=== PATIENT | female | born 1955 | race Caucasian/White ===

== ENCOUNTER → 2016-09-20 | Day surgery (SDC) | payer BC ==
[2016-09-13 08:35] VITALS: Ht 175.3 cm; Wt 136.4 kg
[~2016-09-20] VITALS: Ht 175.3 cm; Wt 136.4 kg
[~2016-09-20] MED LIST: ASPI-435 PO; EpHEDrine SULFATE 50MG/5ML SYR ONE; LIDOCAINE HCL 2% 2 ML VIAL (20MG/ML) ONE; LSX20 PO; MAGN1CAP2 PO; PROPOFOL IV EMULSION 10 MG/ML 20 ML VIAL IV ONE; SODIUM CHLORIDE 0.9% 500ML 500 ML IV ONE; SPR25 PO; TPRSR/25 PO
--- NOTE | 2016-09-20 08:41 | Endo History and Physical ---
History & Physical Date of Service: Sep 20, 2016. 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 Referring Physician: Past Medical History Atrial Fibrillation, Arthritis, Fractures, Other Past Surgical History Hx Cardiac Surgery: Yes (HEART CATH X2, NO STENTS) Hx Internal Defibrillator: No Hx Pacemaker: No Hx Abdominal Surgery: Yes (MAIN AND APPY, UTERINE ABLATION) Hx of Implantable Prosthesis: No Hx Post-Op Nausea and Vomiting: No Hx Cancer Surgery: No Hx Thoracic Surgery: No Hx Orthopedic: Yes (LT KNEE SURGERY X3) Hx Urinary Tract Surgery: No Family History Colon CA Social History Smoking Status: Never Smoker Hx Substance Use: No Hx Alcohol Use: No Allergies Coded Allergies: Adhesives (Verified Allergy, Unknown, REDNESS, RASH, 09/13/16) Penicillins (Verified Allergy, Unknown, HIVES, 09/13/16) Sulfa Drugs (Verified Allergy, Unknown, HIVES, 09/13/16) Current Medications Reported Home Medications Medications Dose Route/Sig Max Daily Dose Days Date Category Aspirin 81 (Aspirin) 81 Mg Tab 81 Mg PO HS 07/01/14 Reported Metoprolol Succinate ER (Metoprolol Succinate) 25 Mg Tabcr 25 Mg PO HS 07/01/14 Reported Magnesium (Magnesium Oxide (Mg Supplement) 400 Mg Cap 400 Mg PO HS 07/01/14 Reported Furosemide 20 Mg Tab 20 Mg PO Q2D 07/01/14 Reported Spironolactone 25 Mg Tab 25 Mg PO Q2D 07/01/14 Reported Vital Signs Weight (Kilograms): 136.36 Height (Feet): 5 Height (Inches): 9 Physical Exam General Appearance: WD/WN, no apparent distress Respiratory/Chest: Auscultation: breath sounds normal, no wheezing Cardiovascular: Heart Auscultation: RRR, no murmurs Abdomen: Inspection & Palpation: soft, no tenderness, guarding & rebound Assessment and Plan Cleared for colonoscopy.
--- NOTE | 2016-09-20 09:15 | Discharge Instructions ---
Endoscopy Patient Instructions Date / Procedure(s) Performed Sep 20, 2016. Colonoscopy Allergy Information Coded Allergies: Adhesives (Verified Allergy, Unknown, REDNESS, RASH, 09/13/16) Penicillins (Verified Allergy, Unknown, HIVES, 09/13/16) Sulfa Drugs (Verified Allergy, Unknown, HIVES, 09/13/16) Discharge Date / Findings Sep 20, 2016. Normal examination. Medication Instructions Stopped Medication(s): took baby ASA last night Restart Stopped Medication(s): Restart all medications today Provider Instructions Activity Restrictions - No exercising or heavy lifting for 24 hours. - Do not drink alcohol the day of the procedure. - Do not drive a car or operate machinery until the day after the procedure. - Do not make any important decisions or sign important papers in 24 hours after the procedure. Following Day: - Return to full activity which may include returning to work/school. Diet Start your diet with liquids and light foods (jello, soup, juice, toast). Then eat your usual diet if not nauseated. Treatment For Common After Affects For mild abdominal pain, bloating, or excessive gas: - Rest - Eat lightly - Lie on right side Follow-Up Information Follow-up with Dr. Helio Abad as scheduled Repeat colonoscopy in three years. Anesthesia Information What You Should Know You have had a procedure that required some medicine to reduce anxiety and discomfort. This treatment is called moderate sedation. After receiving the treatment, you may be sleepy, but you will be able to breathe on your own. The effects of the treatment may last for several hours. Follow these instructions along with Activity/Diet recommendations noted above: * Do NOT do anything where dizziness or clumsiness would be dangerous. * Rest quietly at home today, then you can be up and about tomorrow. * Have a responsible person stay with you the rest of today. * You may have had an I.V. today. If so, you may take the dressing off later today. Recommendations Call your doctor if: * Trouble breathing * Continuous vomiting for more than 24 hours * Temperature above 101 degrees * Severe abdominal pain or bloating * Pain not relieved by pain medicine ordered * There is increased drainage or redness from any incision * A large amount of rectal bleeding greater than 2-3 tablespoons. (If you had a polyp/s removed or have hemorrhoids, a small amount of blood - from the rectum is to be expected.) * You have any unanswered questions or concerns. IN THE EVENT OF A SERIOUS EMERGENCY, GO TO THE NEAREST EMERGENCY ROOM Your discharge instructions were prepared by provider Reilly Garibay. Patient Instructions Signature Page Amada Brown Patient (or Guardian) Signature/Date: I have read and understand the instructions given to me by my caregivers. Caregiver/RN/Doctor Signature/Date: The above-named patient and/or guardian has received patient instructions on this date. + Original Patient Signature Page (only) stays with chart. Please make copy for patient.
--- NOTE | 2016-09-20 09:19 | GI REPORT ---
Procedure Date: 09/20/2016 8:47 AM Procedure: Colonoscopy Indications: High risk colon cancer surveillance: Personal history of rectal MALT removed endoscopically Medicines: Monitored Anesthesia Care Complications: No immediate complications. Estimated blood loss: None. Estimated Blood Loss: Estimated blood loss: none. Procedure: Pre-Anesthesia Assessment: - Prior to the procedure, a History and Physical was performed, and patient medications, allergies and sensitivities were reviewed. The patient's tolerance of previous anesthesia was reviewed. - ASA Grade Assessment: III - A patient with severe systemic disease. After I obtained informed consent, the scope was passed under direct vision. Throughout the procedure, the patient's blood pressure, pulse, and oxygen saturations were monitored continuously. The Scope was introduced through the anus and advanced to the terminal ileum, with identification of the appendiceal orifice and IC valve. The colonoscopy was performed with ease. The patient tolerated the procedure well. The quality of the bowel preparation was excellent. The bowel preparation used was split dose MIralax. Findings: A tattoo was seen in the rectum. A post-polypectomy scar was found at the tattoo site. There was no evidence of residual polyp tissue. Impression: - A tattoo was seen in the rectum. A post-polypectomy scar was found at the tattoo site. There was no evidence of residual polyp tissue. - No specimens collected. - The colon was otherwise normal to the terminal ileum with retroflexed views of the colon and terminal ileum. Recommendation: - Repeat colonoscopy in 3 years for surveillance. Reilly Garibay M.D. Reilly Garibay MD 09/20/2016 9:19:14 AM This report has been signed electronically. Note Initiated On: 09/20/2016 8:47 AM I attest to the content of the Intraoperative Record and orders documented therein, exceptions below
[2016-09-20 09:48] VITALS: BP 118/78; PULSE 94; O2SAT 96
--- NOTE | 2016-09-20 13:49 | Anesthesiology Progress Note ---
Anesthesia Post Op Note Date & Time Sep 20, 2016 at 13:49 Vital Signs Pain Intensity: 0 Vital Signs Past 12 Hours Date Time Temp Pulse Resp B/P Pulse Ox O2 Delivery O2 Flow Rate FiO2 09/20/16 09:48 94 20 118/78 96 Room Air 09/20/16 09:32 75 20 112/84 98 Nasal Cannula 5 09/20/16 09:17 63 20 102/66 98 Nasal Cannula 5 09/20/16 08:40 36.7 72 20 127/69 96 Room Air Notes Mental Status: alert / awake / arousable, participated in evaluation Pt Amnestic to Procedure: Yes Nausea / Vomiting: adequately controlled Pain: adequately controlled Airway Patency, RR, SpO2: stable & adequate BP & HR: stable & adequate Hydration State: stable & adequate Anesthetic Complications: no major complications apparent
== END | disposition home or self-care (01) ==
LOC: C.GI 08:20
PROVIDERS: ATTEND Internal Medicine Gastroenterology
DX: Z12.11 Encounter for screening for malignant neoplasm of colon (principal); I48.91 Unspecified atrial fibrillation; M19.90 Unspecified osteoarthritis, unspecified site; Z79.82 Long term (current) use of aspirin; Z85.79 Personal history of other malignant neoplasms of lymphoid, hematopoietic and related tissues; Z88.0 Allergy status to penicillin; Z88.2 Allergy status to sulfonamides; Z80.0 Family history of malignant neoplasm of digestive organs

== ENCOUNTER 2018-12-05 06:02 | Inpatient (IN) ==
--- NOTE | 2018-12-03 09:06 | Anesthesiology Consultation ---
Date of Service December 03, 2018 Assessment & Plan (1) Encounter for pre-operative examination: Chart Review Chart Review: Acceptable Risk for Surgery and Patient NOT seen in Pre Admission Testing History Surgery Operation Date: 12/05/18 08:00 Proposed Procedures p Preventricular Contraction Ablation with Mapping, Anesthesia Needed - Lina Will, Height/Weight Height: 5 ft 9 in Weight: 141.067 kg Allergies Allergy/AdvReac Type Severity Reaction Status Date / Time adhesive Allergy Unknown REDNESS, Verified 11/28/18 14:57 RASH WITH BANDAIDS Penicillins Allergy Unknown HIVES Verified 11/28/18 14:57 Sulfa (Sulfonamide Allergy Unknown HIVES Verified 11/28/18 14:57 Antibiotics) Medications Home Medications Medication Instructions Recorded Confirmed Last Taken aspirin 81 mg PO QPM 04/05/18 11/28/18 06/06/18 01:00 furosemide 20 mg PO QAM 04/05/18 11/28/18 06/05/18 10:00 20 mg magnesium oxide 400 mg PO QPM 04/05/18 11/28/18 06/06/18 01:00 400 mg metoprolol succinate 25 mg PO BID 04/05/18 11/28/18 06/06/18 01:00 25 mg spironolactone 25 mg PO QAM 04/05/18 11/28/18 06/05/18 10:00 25 mg sacubitril-valsartan [Entresto] 1 tab PO BID 11/27/18 11/28/18 Unknown Past Medical History Medical History Anemia HX Atrial fibrillation Per cardio (EP) 05/15: "Paroxysmal, dx 2012, no further documented episodes. On Toprol, not on anticoagulation due to problems 5 yrs ago. On coumadin sounds like she got ischemic fingers from it, could not afford NOAC. [id number]- VASc score 3." Cardiomyopathy Nonischemic dilated CM. LV function 20-25% Chronic kidney disease STAGE 3 -- PCP MONITORING. GERD (gastroesophageal reflux disease) HX Hiatal hernia History of rectal cancer SURGERY TO REMOVE CANCER/NO CHEMO-06/2011 (PT DENIES, AND STATES THIS MAY BE WRONG) Hx of ulcer disease ICD (implantable cardioverter-defibrillator) in place BiV, implanted 06/06/2018. LAST CHECKED 10/2018. [employer]. Morbid obesity Osteoarthritis SOB (shortness of breath) on exertion Suspected sleep apnea Per cardio note 11/13/18 Past Family History Family History Mother Family history of diabetes mellitus Other No significant family history Past Surgical History Surgical History History of appendectomy History of cardiac cath NO STENTS-05/22/18 [facility] History of cholecystectomy History of colonoscopy X MULTIPLE History of endometrial ablation History of esophagogastroduodenoscopy (EGD) History of tonsillectomy Hx of knee surgery BILATERAL Social History Smoking Status: Never smoker Do You Dip or Chew Tobacco: No Hx Alcohol Use: No Hx Substance Use: No substance use type: does not use Testing Laboratory Results 10/11/18 WBC: 7.29 H/H: 14.6/45.0 PLATELETS: 174 SODIUM: 144 POTASSIUM: 4.5 CHLORIDE: 105 CO2: 27 BUN: 23 CREATININE: 1.0 GLUCOSE: 98 Electrocardiogram Date: 10/11/18 AV dual-paced rhythm at 71bpm. Chest X-Ray Date: 06/06/19 1. A 3-lead cardiac AICD has been placed as above. No pneumothorax is seen post procedure. 2. Cardiomegaly without radiographic evidence of congestive failure. 3. No airspace consolidation or pleural effusion is identified. Echocardiogram Date: 10/29/18 EF: 20-24% LV cavity size is moderately enlarged. Mild concentric LVH. Severe diffuse left HK with EF 20-24%. Grade I diastolic dysfunction. RV systolic function is normal as assessed by tricuspid annular plane systolic excursion. LA is normal in size. Normal IVC size and collapsability with sniff indicates a normal R atrial pressure of 3 mm Hg. No evidence of pulmonary HTN. No significant valve disease. Stress Test Date: 05/01/18 Resting EF: 20-25% Abnormal Lexiscan nuclear stress test suggesting anterior infarct with mild, focal, marco a-infarct ischemia involving the mid anterior segment. Abnormal gated SPECT imaging with an EF of 20-25% and severe global hypokinesis. Cardiac Catheterization Date: 05/22/18 Right dominant coronary anatomy Large-caliber normal coronaries, thin distal vessels Dilated left ventricle with severe diffuse left ventricular dysfunction EF 20- 25% Normal right heart pressures, no transaortic valve or mitral valve gradient LVEDP and pulmonary capillary wedge pressure 12mmHg Other Testing Pacer/ICD Remote Monitoring Transmission 11/12/18 Implanted 06/07/18 [employer] Pacing = 68.5% AP, 73.3% RV paced Mode = DDDR at 70bpm Mode switch episodes = 0 VT/VF episodes = 2 nonsustained episodes of which the longest was 1 second with ventricular rate of 200bpm. Impression = Normal defibrillator function. Stable pacing and sensing thresholds. Adequate battery reserve. "BiV ICD effective pacing is decreased."
[~2018-12-05 06:02] MED LIST changes: -ASPI-435 PO; +CEFAZOLIN 3000MG 65 ML IV SCH; -EpHEDrine SULFATE 50MG/5ML SYR ONE; -LIDOCAINE HCL 2% 2 ML VIAL (20MG/ML) ONE; +LR 15ML/HR IV SCH; -LSX20 PO; -MAGN1CAP2 PO; -PROPOFOL IV EMULSION 10 MG/ML 20 ML VIAL IV ONE; -SODIUM CHLORIDE 0.9% 500ML 500 ML IV ONE; -SPR25 PO; -TPRSR/25 PO
[2018-12-05] MEDS ORDERED: MIDAZOLAM HCL 1 MG/ML 2ML VIAL ONE ×2 (07:42→09:59)
[2018-12-05] MEDS ORDERED: PROPOFOL IV EMULSION 10 MG/ML 20 ML VIAL IV ONE ×5 (07:42→12:22)
[2018-12-05] MEDS ORDERED: LIDOCAINE HCL 2% 2 ML VIAL/AMP(20MG/ML) INFIL ONE ×2 (07:42→10:15)
[2018-12-05] MEDS ORDERED: fentaNYL citrate 100 MCG/2 ML VIAL ONE ×5 (07:42→11:27)
--- NOTE | 2018-12-05 07:55 | History & Physical Bridge Note ---
Date of Service December 05, 2018 History & Physical Bridge Note I have examined the patient, reviewed the History & Physical and in the interval since the performance of the History & Physical I have noted the following changes of clinical significance: pt prefers to try the PVC ablation; explained the risks with the patient and consents obtained.
[2018-12-05] MEDS ORDERED: HEPARIN SOD (PORCINE) 1000 UNIT/ML 10 ML VIAL ONE ×3 (08:19→10:37)
[2018-12-05] MEDS ORDERED: CLINDAMYCIN PHOS 300 MG/2 ML VIAL ONE (08:39)
[2018-12-05] MEDS ORDERED: KETAMINE HCL INJ 50 MG/ML 10 ML VIAL ONE (10:59)
[2018-12-05] MEDS ORDERED: ONDANSETRON INJ 2 MG/ML 2 ML VIAL ONE (12:25)
[2018-12-05] MEDS ORDERED: OXYCODONE/ACETAMINOPHEN 5mg/325mg TAB PO PRN (12:42)
[2018-12-05] MEDS ORDERED: ACETAMINOPHEN 325 MG TAB PO PRN (12:42)
[2018-12-05] MEDS ORDERED: SOTALOL HCL 80 MG TAB PO ONE ×2 (12:45→13:17)
--- NOTE | 2018-12-05 12:54 | Operative Report ---
Post Operative Report Pre & Post Diagnosis Pre: PVCs Post: PVCs Operation Date: 12/05/18 08:00 <No data on this case meets the specified criteria> Procedure Operation Date: 12/05/18 08:00 Actual Procedures p EPS + Ablation +3D Map for VT - DO salvatore Ghotra Ultrasound Vascular Access - DO salvatore Ghotra Interrogation of ICD - Lina Will DO Surgeon Lina Will DO Side Laster none Estimated Blood Loss 10 Findings Consistent with Post-Op Diagnosis Specimens none Description of Procedure see official report I attest to the content of the Intraoperative Record and any orders documented therein. Any exceptions are noted below.
--- NOTE | 2018-12-05 13:04 | Discharge Summary ---
Date of Service December 05, 2018 Admission HPI Pt admitted for elective possible PVC ablation due to PVC effecting BiV pacing. Admission Exam Per Admitting Provider aaox3, NAD NC/AT, EOMI Supple No JVD Nrl S1/S2, No murmur, +PVC CTA b/l no w/r/r soft nt/nd no LE edema b/l skin intact no focal deficits Principal Diagnosis Principal Diagnosis PVCs multifocal-at least 2 different ones; s/p 3D EP mapping of the PVCs but no ablation and started on sotalol Discharge Exam aaox3, NAD NC/AT, EOMI Supple No JVD Nrl S1/S2, No murmur CTA b/l no w/r/r soft nt/nd no LE edema b/l skin intact no focal deficits Discharge Data Allergies Allergy/AdvReac Type Severity Reaction Status Date / Time adhesive Allergy Unknown REDNESS, Verified 11/28/18 14:57 RASH WITH BANDAIDS Penicillins Allergy Unknown HIVES Verified 11/28/18 14:57 Sulfa (Sulfonamide Allergy Unknown HIVES Verified 11/28/18 14:57 Antibiotics) Procedures Performed Operation Date: 12/05/18 08:00 Actual Procedures p EPS + Ablation +3D Map for VT - DO salvatore Ghotra Ultrasound Vascular Access - DO salvatore Ghotra Interrogation of ICD - Lina Will DO Ordered Studies 12/05/18 06:38 CL Cath Imgs for PACS use only Routine 12/05/18 08:45 EP Lab Images for PACS ONCE Hospital Course (1) PVC (premature ventricular contraction): Total Time Total Time Spent Total Time Spent (In Minutes): 30 Total Time Includes: Examination of the Patient, Discharge Planning, Medication Reconciliation and Other Discharge Plan Discharge Items Patient Disposition: Home - Self-Care Reason For Visit: PVC Discharge Diagnosis: PVCs s/p unsuccessful PVC ablation and started on sotalol Condition: Good Discharge Goals: Improve function Activity: Resume your previous activity Lifting: No more than 10 pounds Lifting Comment: do not do any heavy lifting or squating for 1 week Bathing: No limitations Sexual Activity: After one week Driving/Machine Use: No limitations 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 Will on 01/01/2019 at [facility], patient arrival time 1:15 PM, started this at 1:30 PM. . ACTIVITY RECOMMENDATIONS: * You may shower/bathe in 1 day. MEDICATIONS: * Tylenol, as directed, for discomfort. SPECIAL CARE INSTRUCTIONS: * If bleeding occurs, apply direct pressure to area for 5 minutes. * Call your doctor if you have severe pain, fever, drainage or bleeding at site. * Keep dressing on and dry for 48 hours then remove. * Keep any scheduled doctor's appointment. SKIN IRRITATION: * You may experience some redness and/or swelling in the area where radiation was administered. If any skin irritation occurs, please contact your family physician. FOLLOW UP VISIT: Keep any scheduled doctor appointments. Prescriptions: New sotalol 120 mg tablet 120 mg PO BID Qty: 68 RF: 11 Continued aspirin 81 mg Tablet,Delayed Release (Dr/Ec) 81 mg PO QPM RF: 0 spironolactone 25 mg tablet 25 mg PO QAM RF: 0 furosemide 20 mg tablet 20 mg PO QAM RF: 0 metoprolol succinate 25 mg tablet extended release 24 hr 25 mg PO BID RF: 0 magnesium oxide 400 mg Capsule 400 mg PO QPM RF: 0 Entresto 24-26 mg Tablet 1 tab PO BID RF: 0 Stand-Alone Forms: [facility] Discharge Orders: Discharge Order (Routine); Ordered 12/07/18 Ordered By: Masood Samaniego Admission Data Admit Date/Time: 12/05/18 12:42 Attending Provider: Lina Will Admit Provider: Lina Will Primary Care Provider: Helio Abad Service: Telemetry
[2018-12-05] MEDS ORDERED: MoRPHine SULFATE 2 MG/ML CARP IV PRN (13:16)
[2018-12-05] MEDS ORDERED: MoRPHine SULFATE 2 MG/ML CARP ONE (13:18)
[2018-12-05] MEDS ORDERED: PHENYLEPHRINE 100MCG/ML 5ML SYR ONE (13:25)
[2018-12-05] MEDS ORDERED: ePHEDrine sulfate 50 MG/ML AMP IV PRN (15:15)
[2018-12-05] MEDS ORDERED: ATROPINE SULFATE 0.1 MG/ML 10ML SYR IV PRN (15:15)
--- NOTE | 2018-12-05 15:35 | Anesthesiology Progress Note ---
Date of Service December 05, 2018 Anesthesia Post Procedure Vital Signs Vital Signs: Temp Pulse Resp BP Pulse Ox 12/05/18 15:30 66 14 96/54 L 98 12/05/18 15:25 65 14 101/60 98 12/05/18 15:20 65 14 102/65 98 12/05/18 15:15 65 14 102/65 98 12/05/18 15:00 65 14 99/52 L 98 12/05/18 14:45 84 16 102/55 L 98 12/05/18 14:30 84 16 98/56 L 98 12/05/18 14:15 85 18 99/60 L 98 12/05/18 14:00 85 18 110/75 98 12/05/18 13:45 78 18 102/66 96 12/05/18 13:30 87 18 99/64 L 96 12/05/18 13:15 87 18 104/65 96 12/05/18 13:00 87 18 91/62 L 96 12/05/18 12:45 87 18 91/61 L 94 12/05/18 07:12 36.8 C 64 18 97/50 L 95 Transfer of Care Handoff Completed per policy Notes Mental Status: alert / awake / arousable Patient Amnestic to Procedure: Yes Nausea / Vomiting: adequately controlled Pain: adequately controlled Airway Patency, RR, SpO2: stable & adequate BP & HR: stable & adequate Hydration State: stable & adequate Anesthetic Complications: no major complications apparent
[2018-12-05] MEDS: SACUBITRIL-VALSARTAN 24-26 MG TAB PO SCH (18:27)
[2018-12-05] MEDS: MAGNESIUM OXIDE 400 MG TAB PO SCH (18:27)
[2018-12-05] MEDS: ASPIRIN 81 MG ECTAB PO SCH (18:27)
[2018-12-05] MEDS: METOPROLOL SUCC 25MG EXT REL TAB PO SCH (18:27)
[2018-12-05] MEDS: SOTALOL HCL 80 MG TAB PO SCH (20:23)
[2018-12-05] MEDS ORDERED: SOTALOL HCL 80 MG TAB PO SCH (21:00)
[2018-12-06] MEDS: FUROSEMIDE 20 MG TAB PO SCH (09:48)
[2018-12-06] MEDS: SOTALOL HCL 80 MG TAB PO SCH ×2 (09:49→20:13)
[2018-12-06] MEDS: METOPROLOL SUCC 25MG EXT REL TAB PO SCH ×2 (09:50→20:12)
[2018-12-06] MEDS: SACUBITRIL-VALSARTAN 24-26 MG TAB PO SCH ×2 (09:51→20:13)
--- NOTE | 2018-12-06 09:55 | Cardiology Progress Note ---
Date of Service December 06, 2018 Assessment & Plan (1) NICM (nonischemic cardiomyopathy): (2) LBBB (left bundle branch block): (3) Encounter for monitoring anti-arrhythmic therapy: (4) PVC (premature ventricular contraction): Patient is a 63 year old female seen in cardiology follow-up in coverage of Dr. Will. 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 Barrett of our practice. Of cardiomyopathy, with decline in her LV systolic function over the last calendar year. Cardiac catheterization in May 2018 revealed no obstructive CAD, and therefore it was deemed that her cardia myopathy with a nonischemic cardiomyopathy in the setting of left bundle branch block, and left ventricular dyssynchrony. She subsequently underwent implantation of a biventricular pacemaker AICD, but her ejection fraction remains low with symptomatic left ventricular systolic heart failure. She has a history of frequent PVCs, and therefore underwent EP study and attempted PVC ablation yesterday which was partially successful. Hospitalized for the initiation of sotalol for PVC suppression purposes. Laboratory reveals a stable AV pacing. Her corrected QT interval on EKG this morning is greater than 500 ms, but this needs to be interpreted with taking account her underlying biventricular pacing, and therefore it is really not helpful in terms of initiating sotalol. If she was to have sotalol related pro arrhythmia side effects however her device would serve as a safety net and would treat the arrhythmia. I discussed the patient's case with her nurse. I recommended ministering her home medications despite her relative low blood pressure, as her blood pressure does not look too far from her baseline. We will plan to obtain laboratory studies including CBC, magnesium level and conference metabolic panel tomorrow. Start Lovenox for DVT prophylaxis. Ambulate as tolerated. Likely be discharged tomorrow. Subjective Chief complaint: Follow-up cardiomyopathy Subjective: Patient feeling well. She just got out of bed and is walking in the hallway. Telemetry reveals stable sinus rhythm with AV sequential pacing and no significant arrhythmia. She is here to receive her morning medications as her systolic blood pressure this morning was 91 mmHg, and the nurses waiting to touch base with me prior to administering her medicines. Patient reports mild lower extremity edema, but she has not received her furosemide yet today. Review of Systems Review of Systems: All systems reviewed & are unremarkable except as noted in HPI & below Physical Exam Physical Exam: General: no acute distress and stated age Eyes: conjunctiva are pink and non-injected, sclera clear Neck: normal jugular venous pulse, no hepatojugular reflux Chest: normal shape and normal respiratory effort Lungs: clear to auscultation and percussion Cardiac Exam: - regular heart sounds, no murmurs, rubs, or gallops, no jugular venous distention Abdomen: abdomen soft, non-tender, no abnormal masses and no hepatosplenomegaly Musculoskeletal: no gait disturbance, no weakness Extremities: no edema and no cyanosis, right femoral access site clean dry and intact. Neuro:awake, coversant, follows commands, no focal motor deficits Psych: appropriate affect and insight. Results & Data Vital Signs (Past 12 Hours) Vital Signs Temp Pulse Resp BP Pulse Ox 12/06/18 07:02 36.6 C 81 17 91/60 L 94 12/06/18 03:15 36.5 C 82 16 98/67 L 91 12/05/18 23:45 36.6 C 80 16 92/53 L 95 Laboratory Results Intake and Output 12/05/18 12/06/18 12/06/18 22:59 06:59 14:59 Intake Total 600 / 600 Balance 600 / 600 Intake: Oral 600 / 600 Other: # Unmeasured Voids 1 Weight 141.067 kg 141.1 kg
[2018-12-06 10:30] LABS: Hematocrit (blood only) 36.4 % (37-47); Hemoglobin 11.9 g/dL (12.0-16.0); Mean Corpuscular Hgb Conc 32.7 g/dL (32-36); Mean Corpuscular Volume 90.1 fL (80-100); Mean Platelet Volume 10.3 fL (7.4-10.4); Platelet Count 121 K/uL (130-400); RDW Standard Deviation 49.5 fL (36.4-46.3); Red Blood Count 4.04 M/uL (4.2-5.4); White Blood Count 5.33 K/uL (4.8-10.8)
--- NOTE | 2018-12-06 10:32 | Anesthesiology Progress Note ---
Date of Service December 06, 2018 Anesthesia Post Procedure Vital Signs Vital Signs: Temp Pulse Resp BP Pulse Ox 12/06/18 07:02 36.6 C 81 17 91/60 L 94 12/06/18 03:15 36.5 C 82 16 98/67 L 91 12/05/18 23:45 36.6 C 80 16 92/53 L 95 12/05/18 19:23 36.9 C 87 18 90/53 L 93 12/05/18 16:00 36.6 C 82 18 97/63 L 95 12/05/18 15:45 66 16 106/45 L 99 12/05/18 15:40 65 16 104/60 98 12/05/18 15:35 66 14 102/60 98 12/05/18 15:30 66 14 96/54 L 98 12/05/18 15:25 65 14 101/60 98 12/05/18 15:20 65 14 102/65 98 12/05/18 15:15 65 14 102/65 98 12/05/18 15:00 65 14 99/52 L 98 12/05/18 14:45 84 16 102/55 L 98 12/05/18 14:30 84 16 98/56 L 98 12/05/18 14:15 85 18 99/60 L 98 12/05/18 14:00 85 18 110/75 98 12/05/18 13:45 78 18 102/66 96 12/05/18 13:30 87 18 99/64 L 96 12/05/18 13:15 87 18 104/65 96 12/05/18 13:00 87 18 91/62 L 96 12/05/18 12:45 87 18 91/61 L 94 Notes Mental Status: alert / awake / arousable and participated in evaluation Nausea / Vomiting: adequately controlled Pain: adequately controlled Airway Patency, RR, SpO2: stable & adequate BP & HR: stable & adequate Hydration State: stable & adequate
[2018-12-06] MEDS: SPIRONOLACTONE 25 MG TAB PO SCH (10:33)
[2018-12-06 10:41] LABS: INR 1.1 (0.9-1.1); Partial Thromboplastin Ratio 0.9; Partial Thromboplastin Time 23.4 Seconds (21.0-31.0); Prothrombin Time 11.2 Seconds (9.0-12.0)
[2018-12-06 11:03] LABS: Creatinine Clr Calc Pharmacy 87.7 ml/min; Est GFR (African American) 69.1; Est GFR (Non-African American) 59.6
[2018-12-06] MEDS: ENOXAPARIN INJ 40 MG/0.4 ML SYR SQ SCH (14:26)
[2018-12-06] MEDS: MAGNESIUM OXIDE 400 MG TAB PO SCH (20:13)
[2018-12-06] MEDS: ASPIRIN 81 MG ECTAB PO SCH (20:13)
[2018-12-07 06:13] LABS: Hematocrit (blood only) 34.6 % (37-47); Hemoglobin 11.4 g/dL (12.0-16.0); Mean Corpuscular Hgb Conc 32.9 g/dL (32-36); Mean Corpuscular Volume 89.2 fL (80-100); Mean Platelet Volume 10.9 fL (7.4-10.4); Platelet Count 118 K/uL (130-400); RDW Coefficient of Variation 14.7 % (11.5-14.5); RDW Standard Deviation 48.3 fL (36.4-46.3); Red Blood Count 3.88 M/uL (4.2-5.4); White Blood Count 4.57 K/uL (4.8-10.8)
[2018-12-07 06:53] LABS: Albumin Level 2.9 gm/dl (3.4-5.0); Calcium 8.3 mg/dl (8.5-10.1); Est GFR (African American) 80.5; Est GFR (Non-African American) 69.5; Magnesium 2.2 mg/dl (1.8-2.4); Potassium 3.8 mmol/L (3.5-5.1)
[2018-12-07 06:55] LABS: Albumin Globulin Ratio 0.9 (0.9-2); Bilirubin,Total 0.5 mg/dl (0.2-1); Globulin 3.3 gm/dl (2.5-4.0); Total Protein 6.2 gm/dl (6.4-8.2)
[2018-12-07] MEDS: SPIRONOLACTONE 25 MG TAB PO SCH (08:07)
[2018-12-07] MEDS: FUROSEMIDE 20 MG TAB PO SCH (08:07)
[2018-12-07] MEDS: SOTALOL HCL 80 MG TAB PO SCH (08:07)
[2018-12-07] MEDS: ENOXAPARIN INJ 40 MG/0.4 ML SYR SQ SCH (08:07)
[2018-12-07] MEDS: SACUBITRIL-VALSARTAN 24-26 MG TAB PO SCH (08:07)
[2018-12-07] MEDS: METOPROLOL SUCC 25MG EXT REL TAB PO SCH (09:21)
--- NOTE | 2018-12-07 10:35 | Cardiology Progress Note ---
Date of Service December 07, 2018 Assessment & Plan (1) NICM (nonischemic cardiomyopathy): (2) LBBB (left bundle branch block): (3) PVC (premature ventricular contraction): (4) Encounter for monitoring anti-arrhythmic therapy: Patient has a history of nonischemic cardiomyopathy, left bundle branch block. She underwent implantation of a biventricular pacemaker AICD in June,, but remains symptomatic and has severe LV systolic dysfunction. She had been noted to have frequent PVCs. And therefore she was admitted for PVC ablation. The PVC ablation has been felt to be partially successful. She therefore remained in the hospital for antiarrhythmic loading with the medication sotalol. Her prior to hospital metoprolol is also to be increased. Her EKG is somewhat unhelpful in terms of guiding her sotalol therapy due to her ventricular paced rhythm. Fortunately if she was to have a pro-rhythmic effect due to the sotalol, her pacemaker defibrillator will detect and treat such event. Her kidney function stable. Although her blood pressure is on the lower side, she is asymptomatic. And I think her medications for her heart failure are important and I am going to discharge her without change with the exception of the sotalol medication. Subjective Chief complaint: Follow-up cardiomyopathy, frequent PVCs Subjective: Patient states that she feels well. Her systolic blood pressure is for the most part been in the 90 mmHg range, but she has no symptoms with this. She received her cardiac medications this morning. Initially her metoprolol was held, but I subsequently requested that the nurse administer it. Telemetry reveals atrial ventricular sequential pacing with occasional PVCs including sinus rhythm with ventricular bigeminy. Physical Exam Physical Exam: General: no acute distress and stated age Eyes: conjunctiva are pink and non-injected, sclera clear Neck: normal jugular venous pulse, no hepatojugular reflux Chest: normal shape and normal respiratory effort Lungs: clear to auscultation and percussion Cardiac Exam: - regular heart sounds, no murmurs, rubs, or gallops, no jugular venous distention Abdomen: abdomen soft, non-tender, no abnormal masses and no hepatosplenomegaly Musculoskeletal: no gait disturbance, no weakness Extremities: no edema and no cyanosis -Right groin access site, clean dry and intact, no erythema Neuro:awake, coversant, follows commands, no focal motor deficits Psych: appropriate affect and insight. Results & Data Vital Signs (Past 12 Hours) Vital Signs Temp Pulse Pulse Resp BP BP Pulse Ox 12/07/18 08:00 80 12/07/18 07:11 36.6 C 82 20 90/46 L 92 12/07/18 04:51 36.7 C 82 20 91/47 L 92 12/07/18 00:27 80 12/06/18 23:25 37.2 C 80 18 99/60 L 92 Laboratory Results Cardiac Enzymes 12/07/18 Range/Units 05:52 AST 19 (15-37) U/L Coagulation 12/06/18 Range/Units 10:16 PT 11.2 (9.0-12.0) Seconds APTT 23.4 (21.0-31.0) Seconds CBC 12/07/18 Range/Units 05:52 WBC 4.57 L (4.8-10.8) K/uL RBC 3.88 L (4.2-5.4) M/uL Hgb 11.4 L (12.0-16.0) g/dL Hct 34.6 L (37-47) % Plt Count 118 L (130-400) K/uL Comprehensive Metabolic Panel 12/06/18 12/07/18 Range/Units 10:16 05:52 Sodium 140 (136-145) mmol/L Potassium 3.8 (3.5-5.1) mmol/L Chloride 110 H (98-107) mmol/L Carbon Dioxide 28 (21-32) mmol/L BUN 19 H (7-18) mg/dl Creatinine 1.01 0.89 (0.6-1.2) mg/dl Glucose 110 H (70-99) mg/dl Calcium 8.3 L (8.5-10.1) mg/dl AST 19 (15-37) U/L ALT 20 (12-78) U/L Alkaline Phosphatase 84 (45-117) U/L Total Protein 6.2 L (6.4-8.2) gm/dl Albumin 2.9 L (3.4-5.0) gm/dl Intake and Output 12/06/18 12/07/18 12/07/18 22:59 06:59 14:59 Intake Total 800 / 1295 Balance 800 / 1295 Intake: Oral 800 / 1295 Other: # Unmeasured Voids 1 Weight 140 kg Diagnostic Findings EKG performed today 12/07/2018 at 6:45 AM revealed AV sequential pacing. The QT interval is prolonged at 557 ms but this must be interpreted in the setting of ventricular pacing and is stable.
--- NOTE | 2018-12-12 15:46 | Operative Report ---
DATE OF OPERATION: 12/05/2018 PREOPERATIVE DIAGNOSES: Frequent PVCs affecting decreasing the effective biventricular pacing. POSTOPERATIVE DIAGNOSES: Frequent PVCs affecting decreasing the effective biventricular pacing. PROCEDURE: A 3D mapping of the PVCs within the right ventricle and left ventricle, 2 different morphologies of PVCs, unsuccessful radiofrequency ablation of the PVCs, biventricular implantable cardiac defibrillator lead programming and interrogation. SURGEON: Lina Will DO. ENGINE INSTALLER: None. ANESTHESIA: Monitored anesthetic care administered via Anesthesiology. Please refer to their notes for complete details, but a total of 4 mg of Versed, 500 mcg of fentanyl, 820 mg of propofol, 50 mg of ketamine, 4 mg of Zofran. INTRAVENOUS FLUIDS: 600 mL. ADDITIONAL MEDICATIONS: 16,000 units of heparin. PROCEDURE TIME: 8:04 to 12:38. BLOOD LOSS: Less than 5 mL. URINE OUTPUT: Not applicable. SPECIMENS: None. FINDINGS: See below. DRAINS: None. INDICATIONS: This is a 63-year-old female with past medical history for nonischemic cardiomyopathy, initially diagnosed in 2008 where her EF was 35%. In 2012, it was 30% and in 2013, 40%. She underwent a biventricular ICD in 2019; left bundle branch block; chronic systolic heart failure [place] [employer] class 2; paroxysmal atrial fibrillation, she had 1 occurrence, lone episode in 2012, no further episodes and about 5 years ago, she had ischemic fingers on Coumadin and she is not able to afford NOACs, so she is not on any anticoagulation; CHADS2-VASc score of 3; hypertension; coronary artery disease; nonobstructive disease based on the cath in 06/2010; presumed obstructive sleep apnea. She has had frequent premature ventricular complexes that have been some time in a bigeminal pattern and then affecting her biventricular pacing, so she is recommended a possible PVC ablation versus sotalol initiation. CONSENT: Consent was obtained prior to the patient going into the Electrophysiology Lab. The patient was informed of the risks, benefits, alternatives of the procedure. Risks include but not limited to sudden cardiac , cardiac arrhythmia, cerebrovascular accident, myocardial infarction, injury to the blood vessels, chamber of the heart or the [place] electrical system where she would need a permanent pacemaker as well as myocardial infarction, stroke, arrhythmia, , bleeding and infection. The patient understood these risks and agreed to the procedure as planned. Informed consent was obtained. DESCRIPTION OF THE PROCEDURE: The patient was brought into the Electrophysiology Lab in fasting state. She was connected to continuous cardiac monitoring. A timeout was performed to ensure patient's identity and procedure correctly. The patient was prepped and draped over the bilateral groins in normal surgical standard fashion. Monitored anesthetic care was given throughout the procedure for patient's comfort level. [place] precautions maintained throughout the procedure. A 5 mL of 1% lidocaine were given in the right femoral groin. Then using ultrasound guidance, the femoral vein was accessed via the modified Seldinger technique. Then an 8-Barbadian sheath was inserted through the right femoral vein. I did also get femoral arterial access, then initially had a 5-Barbadian sheath hooked up to a pressure dressing. Before mapping or starting any procedure, I did a biventricular implantable cardiac defibrillator interrogation and reprogramming. The right atrial impedance was 380 ohms and P waves were 1.9 millivolts. The right ventricular impedance is 494 ohms. The RV impedance is 85 ohms. The right ventricular R-waves were 9.8 millivolts and the threshold of 0.5 volts at 0.4 milliseconds. The left ventricular impedance was 836 ohms and the threshold was 1.25 volts at 0.4 milliseconds, programmed LV1-LV2. I turned detection zones off. So, I reprogrammed the device to turn all detection zones off including VF/VT detection and a VT monitor zone as well as the RV lead noise. The mode was switched from DDDR to VVI along with nonadaptive ADJUNCT TEACHER and all the RV lead integrity alerts and noise alerts were turned off. The lower rate was turned from 70-40 and ventricular sensing response was turned off. Then I inserted a PentaRay Biosense catheter up into the right ventricle and did 3D mapping on the right side of 2 different PVCs, morphologies and then I swapped out the PentaRay and did further 3D mapping using the ablation catheter, a DF Biosense ThermoCool catheter into the right ventricle of both 2 different PVC morphologies. One looked like it could be coming from the RV outflow tract and I never got the best. I was only at best on time and I never got good pacing maps, but there was one time where we thought in the anterior septal area that I did and so I gave 1 radiofrequency burn that had 30 bonilla, but this did not show anything. The other PVC morphology did not appear to be coming from the right side. So then I swapped out the 5-Barbadian sheath in the right femoral artery for an 8-Barbadian sheath and then retrogradely advanced into the left ventricle and did 3D mapping of the PVCs both the first one and the second one in the left ventricle. Again, the second PVC looked like it may be coming from lower down on the septum; however, I gave few radiofrequency mar, nothing was supressing and at best I was on time and I never have the best pacing maps, never above 85%. After about 4 hours of mapping both sides of the right and left ventricle, I opted to say that it was unsuccessful and there is no further mapping. Of note, the left-sided HV was 52 milliseconds, the right-sided AH was 102 milliseconds and 74 milliseconds. The NV interval is 184, QRS 148 and QT 488. Once the ACT came down, the sheaths were pulled and manual compression was used to establish hemostasis. I did reprogram and reinterrogate the biventricular device one more time with the following findings: 1. Right atrial lead impedance 380 ohms, sensing 1.8 millivolts and threshold is 0.5 volts at 0.4 milliseconds. 2. Right ventricular lead impedance 456 ohms, threshold 9.6 millivolts, impedance 0.5 volts at 0.4 milliseconds. 3. Left ventricular impedance 703 ohms, threshold 1.5 volts at 0.4 milliseconds. The lower rate was changed to 80. She was changed back to DDDR. Atrial preference was turned on. Atrial preference maximum rate was 100 and discriminate rate at 30 and KIERSTEN search beats to 20. In addition, we turned back on all of her V-tachy therapies and changed her back to adaptive BiV LV ADJUNCT TEACHER. IMPRESSION: Unsuccessful radiofrequency ablation with 3D mapping of 2 different morphologies of PVCs from the right and left ventricle. PLAN: Monitor the patient and will admit her for sotalol initiation in addition to her other medications and hopes that this will help suppress some of the PVCs and we can get better BiV pacing. She will follow up in my office in 1 month time. I attest to the content of the Intraoperative Record and any orders documented therein. Any exceptions are noted below. JUSTIN
== END 2018-12-07 12:59 | disposition home or self-care (01) | DRG 274 ==
LOC: EP 06:02 → 2S 12:42